=== PATIENT | female | born 1935 | race Caucasian/White ===

== ENCOUNTER 2019-03-30 10:30 | Emergency (ER) | payer MEDICARE ==
[~2019-03-30] VITALS: Ht 157.5 cm; Wt 79.4 kg
--- NOTE | 2019-03-30 10:42 | NUR ---
ED Nurse Note: Pt. AAOx4.Pt. was brought in by ambulance from home due to a mechanical ground-level fall. Per pt. she tripped and hit her L lateral side of the thoraxic area and R knee pain was reported. ERMD aware during the assessments. No s/s of acute distress noted. Pt. has a healing abrasion on the L side of the face and pt. confirmed that she got it " froze" by a development rep. Pt. is very nice and cooperative. Pt. denies LOC and denies head trauma.
[2019-03-30] MEDS ORDERED: Morphine Sulfate 2mg/ml Inj(IV/IM USE ONLY) IVP ONE (10:45)
[2019-03-30 11:12] VITALS: BP 143/63
--- NOTE | 2019-03-30 11:13 | NUR ---
ED Nurse Note: daughter in law at the bedside
--- NOTE | 2019-03-30 11:21 | NUR ---
ED Nurse Note: pt. taken down to CT
[2019-03-30 11:23] LABS: ANION GAP 10 mmol/L (5-15); BLOOD UREA NITROGEN 28 mg/dL (7-18); CALCIUM 8.8 MG/DL (8.5-10.1); CARBON DIOXIDE 28 MMOL/L (21-32); CHLORIDE 104 MMOL/L (98-107); CREATININE 1.1 MG/DL (0.55-1.30); POTASSIUM 3.3 MMOL/L (3.5-5.1); SODIUM 142 MMOL/L (136-145)
[2019-03-30 11:24] LABS: EOSINOPHILS % (AUTO) 1.5 % (0.0-3.0); HEMATOCRIT 38.8 % (37.0-47.0); LYMPHOCYTES % (AUTO) 24.6 % (20.0-45.0); MEAN CORPUSCULAR VOLUME 94 FL (80-99); MONOCYTES % (AUTO) 9.2 % (1.0-10.0); NEUTROPHILS % (AUTO) 63.7 % (45.0-75.0); PLATELET COUNT 251 K/UL (150-450); RED BLOOD COUNT 4.15 M/UL (4.20-5.40); RED CELL DISTRIBUTION WIDTH 13.1 % (11.6-14.8); WHITE BLOOD COUNT 7.6 K/UL (4.8-10.8)
[2019-03-30 11:28] LABS: ALANINE AMINOTRANSFERASE 28 U/L (12-78); ALBUMIN 3.3 G/DL (3.4-5.0); ALBUMIN/GLOBULIN RATIO 0.8 (1.0-2.7); ALKALINE PHOSPHATASE 48 U/L (46-116); ASPARTATE AMINO TRANSFERASE 24 U/L (15-37); BILIRUBIN,TOTAL 0.5 MG/DL (0.2-1.0)
--- NOTE | 2019-03-30 12:20 | Diagnostic Imaging Report ---
Clinical Indication: Left lower rib and flank pain, status post fall Technique: Spiral acquisitions obtained through the chest. No IV contrast utilized, per referring physician request. Multiplanar reconstructions generated. Total dose length product 829.03 mGycm. CTDIvol(s) 23.44 mGy. Dose reduction achieved using automated exposure control Comparison: none Findings: There is an unusual fracture of the left seventh rib. The fracture fragment is parallel to the long axis of the rib and does not appear to traverse the shaft. There is an oblique fracture of the posterolateral left ninth rib. This is nondisplaced. No right-sided rib fractures are demonstrated. The thoracic spine appears to be intact. There are degenerative changes of the thoracic spine incidentally noted. There is no evidence of pulmonary parenchymal contusion or pneumothorax. Minimal dependent atelectatic changes are demonstrated posteriorly. No infiltrates, effusions, masses, or nodules are demonstrated. The heart size is normal. There is no evidence of pericardial effusion. No mediastinal or hilar mass or adenopathy. No evidence of substernal hematoma demonstrated. The included thyroid is unremarkable. No axillary or chest wall mass or adenopathy. The included upper abdominal anatomy is remarkable for markedly abnormal appearance to the liver, with surface micronodularity and heterogeneous attenuation apparent parenchymal low-attenuation septa. There is an unusual crescentic rim of slightly higher than fluid attenuation material inferior to the lateral left hemidiaphragm which probably represents blood. This measures approximately 12 mm thick. It appears to be adjacent to the spleen, which is extremely heavily calcified. No definite findings to suggest splenic rupture are demonstrated, however. Impression: Positive for fractures of the left seventh and ninth ribs. Somewhat high attenuation material inferior to the left hemidiaphragm, likely blood. This may originate from the spleen as it is immediately adjacent to it. No definite evidence of splenic fracture, but assessment is limited in the absence of IV contrast. Consider further evaluation with contrast CT. Note unusual appearance to the spleen, which is slightly atrophic and demonstrates extensive calcification. Evidence of hepatic cirrhosis Minimal posterior dependent pulmonary atelectatic changes. Findings discussed by phone with Dr. Strickland in the emergency room at the time of interpretation The CT scanner at [facility] is accredited by the [employer] and the scans are performed using protocols designed to limit radiation exposure to as low as reasonably achievable to attain images of sufficient resolution adequate for diagnostic evaluation.
--- NOTE | 2019-03-30 12:26 | Emergency Room Report ---
History of Present Illness General Chief Complaint: Multiple Trauma/Fall Source: Patient, EMS Present Illness HPI Patient is an 83-year-old female presented after a fall. Patient reports having fallen from standing after tripping. She states she tripped on a cord. She did not lose consciousness. She reports having increased pain to the left side of her abdomen and chest. She denies any head injury. Patient denies any neck pain. She reports having severe pain with movements as well as deep breaths. Patient had not been vomiting. Since the injury. She reports having prior history of liver disease in the past. She denies taking any anticoagulation.Patient additionally reports having some right knee pain. 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 Allergies: Coded Allergies: HYDROCODONE (Verified Allergy, Severe, Rash, 03/30/19) Patient History Past Medical History: see triage record Last Menstrual Period: na Reviewed Nursing Documentation: PMH: Agreed; PSxH: Agreed Nursing Documentation-PMH Past Medical History: No History, Except For Hx Hypertension: Yes Review of Systems All Other Systems: negative except mentioned in HPI Physical Exam Vital Signs Date Time Temp Pulse Resp B/P (MAP) Pulse Ox O2 Delivery O2 Flow Rate FiO2 03/30/19 10:24 97.7 70 16 140/90 (107) 98 Room Air Sp02 EP Interpretation: reviewed, normal General Appearance: normal inspection, alert, no apparent distress, GCS 15 Head: normocephalic, atraumatic Eyes: normal eye exam, PERRL, EOMI, lids + conjunctiva normal, no hyphema, no racoon eyes ENT: normal ENT inspection, TMs + canals normal, oropharynx normal, no rai signs Neck: trach midline, no bony tend, full range of motion without pain Respiratory: normal inspection, effort normal, no retractions, clear to auscultation, chest symmetrical, speaking in full sentences, other - left chest wall tenderness Cardiovascular: regular rate, rhythm, no JVD Cardiovascular #2: 2+ radial (R), 2+ radial (L), 2+ dorsalis pedis (R), 2+ dorsalis pedis (L) Gastrointestinal: normal inspection, non-tender, non-distended, no rebound/ guarding, normal bowel sounds Genitourinary: normal inspection Musculoskeletal: normal ROM, non-tender, back normal, other - right knee soft tissue swelling Skin: no rash, no lacerations, normal palpation Lymphatic: normal inspection Neurologic: normal inspection, CN II-XII intact, oriented x3, sensory intact, motor strength/tone normal, normal speech, other - decreased hearing Psychiatric: normal inspection, memory normal, mood normal, no suicidal/ homicidal ideation Medical Decision Making Diagnostic Impression: Primary Impression: Fall Additional Impressions: Multiple rib fractures Intraperitoneal hematoma Splenic calcification ER Course Patient presented after a fall. Differential diagnosis include was not limited to pneumothorax, rib fracture, splenic injury among others. Because of complexity of patient's case laboratory testing and imaging studies were ordered. Patient was not noted to have a prior history of Liver disease. Patient was noted to have some soft tissue swelling to her right knee. CT of the chest read by radiology showed fractures of the left ribs 7 and 9. There was some high attenuated material near the left hemidiaphragm which is likely blood adjacent to the spleen. Given the patient's recent trauma this may represent a splenic laceration. x-ray imaging to the knee was deferred at this time.[facility] was contacted for possible transfer for higher level of care due to patient's advanced age and recent trauma.Discussed with Dr. Lane who agreed to accept the patient for transfer for higher level of care. Labs Test 03/30/19 11:02 White Blood Count 7.6 K/UL (4.8-10.8) Red Blood Count 4.15 M/UL (4.20-5.40) Hemoglobin 13.0 G/DL (12.0-16.0) Hematocrit 38.8 % (37.0-47.0) Mean Corpuscular Volume 94 FL (80-99) Mean Corpuscular Hemoglobin 31.4 PG (27.0-31.0) Mean Corpuscular Hemoglobin Concent 33.6 G/DL (32.0-36.0) Red Cell Distribution Width 13.1 % (11.6-14.8) Platelet Count 251 K/UL (150-450) Mean Platelet Volume 6.4 FL (6.5-10.1) Neutrophils (%) (Auto) 63.7 % (45.0-75.0) Lymphocytes (%) (Auto) 24.6 % (20.0-45.0) Monocytes (%) (Auto) 9.2 % (1.0-10.0) Eosinophils (%) (Auto) 1.5 % (0.0-3.0) Basophils (%) (Auto) 1.0 % (0.0-2.0) Prothrombin Time 10.8 SEC (9.30-11.50) Prothromb Time International Ratio 1.0 (0.9-1.1) Activated Partial Thromboplast Time 23 SEC (23-33) Sodium Level 142 MMOL/L (136-145) Potassium Level 3.3 MMOL/L (3.5-5.1) Chloride Level 104 MMOL/L (98-107) Carbon Dioxide Level 28 MMOL/L (21-32) Anion Gap 10 mmol/L (5-15) Blood Urea Nitrogen 28 mg/dL (7-18) Creatinine 1.1 MG/DL (0.55-1.30) Estimat Glomerular Filtration Rate mL/min (>60) Glucose Level 156 MG/DL (74-106) Calcium Level 8.8 MG/DL (8.5-10.1) Total Bilirubin 0.5 MG/DL (0.2-1.0) Aspartate Amino Transf (AST/SGOT) 24 U/L (15-37) Alanine Aminotransferase (ALT/SGPT) 28 U/L (12-78) Alkaline Phosphatase 48 U/L (46-116) Total Protein 7.4 G/DL (6.4-8.2) Albumin 3.3 G/DL (3.4-5.0) Globulin 4.1 g/dL Albumin/Globulin Ratio 0.8 (1.0-2.7) Last Vital Signs Date Time Temp Pulse Resp B/P (MAP) Pulse Ox O2 Delivery O2 Flow Rate FiO2 03/30/19 11:12 97.7 80 24 143/63 98 Room Air Status: unchanged Disposition: XFER SHT-TRM HOSP Condition: Serious Referrals: NON PHYSICIAN (PCP) Corona Strickland MD March 30, 2019 12:26
--- NOTE | 2019-03-30 12:34 | NUR ---
ED Nurse Note: pt. aware of the transfer to [facility] for HLOC. Pt. AAOx4 with daughter in law at the bedside. VSS
[2019-03-30 12:46] VITALS: BP 144/86
--- NOTE | 2019-03-30 12:55 | NUR ---
ED Nurse Note: MIA Mallory -received report from [facility]
[2019-03-30 12:59] VITALS: BP 144/86
--- NOTE | 2019-03-30 13:00 | NUR ---
ED Nurse Note: Pt. left with VSS. [facility]
== END 2019-03-30 12:59 | disposition short-term general hospital (02) ==
LOC: EDBD 10:30 → EMR 11:04
DX: S22.42XA Multiple fractures of ribs, left side, initial encounter for closed fracture (principal); S36.81XA Injury of peritoneum, initial encounter; D73.89 Other diseases of spleen; W01.0XXA Fall on same level from slipping, tripping and stumbling without subsequent striking against object, initial encounter; Y92.9 Unspecified place or not applicable; I10 Essential (primary) hypertension; Z88.6 Allergy status to analgesic agent
CPT/HCPCS: 36415; 71250; 80053; 85025; 85610; 85730; 96374; 99284; J2270